=== PATIENT | male | born 1985 | race American Indian/Alaskan Native ===

== ENCOUNTER 2019-03-17 17:25 | Inpatient (IN) | payer SELFPAY ==
[~2019-03-17 17:25] MED LIST: CARDIZEM IV ONE
[2019-03-17] MEDS ORDERED: CORDARONE 150 MG in D5W 97 ML IV ONE (17:35)
[2019-03-17] MEDS ORDERED: CORDARONE 150 MG in D5W 100 ML IV ONE (17:35)
[2019-03-17] MEDS ORDERED: CORDARONE IV ONE (17:36)
[2019-03-17] MEDS ORDERED: NACL 0.9% 1000 ML 1,000 ML ONE (17:36)
[2019-03-17] MEDS ORDERED: CARDIZEM ONE (17:36)
[2019-03-17] MEDS ORDERED: NACL 0.9% 1000 ML 2,000 ML ONE (17:39)
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
[2019-03-17] MEDS ORDERED: VITAMIN B-1 100 MG, FOLVITE 1 MG, INFUVITE 10 ML in NACL 0.9% 1000 ML 1,000 ML IV ONE (17:46)
[2019-03-17] MEDS ORDERED: NACL 0.9% 1000 ML 2,000 ML IV ONE (17:52)
[2019-03-17 17:54] LABS: Basophils % (Auto) 0.7 % (0.0-1.8); Eosinophils # (Auto) 0.1 K/mm3 (0.0-0.4); Eosinophils % (Auto) 1.1 % (0.0-4.3); Hematocrit 41.2 % (35.5-45.6); Hemoglobin 14.2 gm/dl (11.8-15.2); Lymphocytes # (Auto) 2.7 K/mm3 (1.2-5.4); Lymphocytes % (Auto) 36.6 % (13.4-35.0); Mean Corpuscular HGB Conc 34 % (32-34); Mean Corpuscular Volume 93 fl (84-94); Monocytes # (Auto) 0.5 K/mm3 (0.0-0.8); Monocytes % (Auto) 6.2 % (0.0-7.3); Platelet Count 272 K/mm3 (140-440); Red Blood Count 4.42 M/mm3 (3.65-5.03); Red Cell Distribution Width 13.3 % (13.2-15.2)
[2019-03-17 18:14] LABS: BUN/Creatinine Ratio 11; Blood Urea Nitrogen 11 mg/dL (9-20); Calcium 8.5 mg/dL (8.4-10.2); Hemolysis Index 3
--- NOTE | 2019-03-17 18:36 | XRay Report ---
PROCEDURE: Chest. TECHNIQUE: Chest radiograph single view. HISTORY: Shortness of breath. COMPARISONS: None. FINDINGS: The heart and mediastinum appear normal. The lungs are clear and well expanded. There are no pleural effusions. The soft tissues and regional skeleton are unremarkable. IMPRESSION: Normal study. This document is electronically signed by Daniel Caldera MD., March 17 2019 06:34:34 PM ET
[2019-03-17] MEDS ORDERED: NACL 0.9% 1000 ML 1,000 ML IV ONE (19:16)
[2019-03-17] MEDS ORDERED: ZOFRAN IV PRN (21:13)
[2019-03-17] MEDS ORDERED: TYLENOL PO PRN (21:13)
[2019-03-17] MEDS ORDERED: SODIUM CHLORIDE FLUSH SYRINGE 10 ML IV PRN (21:13)
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
[2019-03-17 21:17] LABS: Bilirubin,Urine NEG (Negative); Blood,Urine NEG (Negative); Color,Urine Yellow (Yellow); Hyaline Casts,Urine 6 /LPF; Mucus,Urine 1+ /HPF; Urobilinogen,Urine < 2.0 mg/dL (<2.0)
[2019-03-17 21:18] LABS: Amphetamine Screen,Urine PRESUMPTIVE NEGATIVE; Benzodiazepines Screen,Urine PRESUMPTIVE NEGATIVE; Cannabinoid Screen,Urine PRESUMPTIVE NEGATIVE; Methadone Screen,Urine PRESUMPTIVE NEGATIVE; Opiate Screen,Urine PRESUMPTIVE NEGATIVE
[2019-03-17 21:32] LABS: Cocaine Screen,Urine PRESUMPTIVE POSITIVE
[2019-03-17] MEDS: SODIUM CHLORIDE FLUSH SYRINGE 10 ML IV SCH (21:39)
[2019-03-17] MEDS ORDERED: PEPCID PO SCH (22:00)
[2019-03-17] MEDS ORDERED: ATIVAN IV PRN (23:11)
[2019-03-18] MEDS: NACL 0.9% 1000 ML 1,000 ML IV SCH ×2 (00:37→12:25)
[2019-03-18] MEDS ORDERED: ALUM-MAG HYDROX-SIMETH 200-200-20MG/5ML PO PRN (00:54)
[2019-03-18] MEDS: REGLAN IV PRN ×2 (03:28→12:31)
[2019-03-18] MEDS ORDERED: PROTONIX IV SCH (04:00)
[2019-03-18] MEDS ORDERED: FOLVITE PO SCH (10:00)
[2019-03-18] MEDS ORDERED: THERAGRAN Tab PO SCH (10:00)
[2019-03-18] MEDS ORDERED: PROTONIX PO SCH (10:00)
[2019-03-18] MEDS ORDERED: VITAMIN B-1 PO SCH (10:00)
[2019-03-18] MEDS ORDERED: VITAMIN B-1 100 MG in NACL 0.9% 50 ML IV SCH (10:00)
[2019-03-18] MEDS: SODIUM CHLORIDE FLUSH SYRINGE 10 ML IV SCH (12:24)
[2019-03-18 12:44] VITALS: BP 121/83
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
[2019-03-18] MEDS ORDERED: K-DUR PO ONE (14:00)
--- NOTE | 2019-03-18 14:39 | Discharge Summary ---
Providers - Providers Date of Admission: 03/17/19 21:13 Date of discharge: 03/18/19 Attending physician: ALETHA COOPER 03/18/19 10:22 Consult to Physician [CONS] Routine Comment: Consulting Provider: JACKSON LAN Physician Instructions: Reason For Exam: SVT [facility] Condition: Critical Pertinent studies: CXR 2d echo Hospital course: The patient is a 33-year-old male with a past history of polysubstance use and ETOH use who presented with complaints of shortness of breath, palpitations and dizziness which began yesterday evening while he was walking to the grocery store. Patient reported that he was drinking alcohol all day with his friends and also admited to cocaine use. Per the chart, upon EMS arrival pt was noted to be tachycardic with SVT suspected and thus pt was given 6 mg of adenosine en route to ED. Patient was then given Cardizem 20 mg with no response and then amiodarone bolus of 150mg and his heart rate began to slow down. Unfortunately, no ECGs or strips from EMS found on the chart. Initial ECG in ED shows apparent sinus tachycardia with HR 150s. Patent remained in NSR with no acute events since admission to telemetry. Cardiology consulted, showed preserved EFon 2d echo. Repleted K and had normal serum Mg, normal thyroid profile, no sign of withdrawal. Patient was then discharged home in stable condition and counseled to be abstained from substance and alcohol abuse. Discharge diagnosis: (1) SVT (supraventricular tachycardia) Current Visit: Yes Status: suspected likely from cocaine abuse (2) Hypokalemia Current Visit: Yes Status: Acute (3) Alcohol use Current Visit: Yes Status: Chronic (4) Cocaine use Current Visit: Yes Status: Chronic (5) Tobacco use Current Visit: Yes Status: Chronic Disposition: DC-01 TO HOME OR SELFCARE Time spent for discharge: 34 minutes Core Measure Documentation - Palliative Care Palliative Care/ Comfort Measures: Not Applicable - Core Measures Any of the following diagnoses?: none Exam - Constitutional Vitals: Temp Pulse Resp BP Pulse Ox 98.1 F 96 H 18 121/83 99 03/18/19 08:41 03/18/19 10:37 03/18/19 08:41 03/18/19 08:41 06/28/19 08:14 General appearance: Present: no acute distress, well-nourished - EENT Eyes: Present: PERRL ENT: hearing intact, clear oral mucosa - Neck Neck: Present: supple, normal ROM - Respiratory Respiratory effort: normal Respiratory: bilateral: CTA - Cardiovascular Heart Sounds: Present: S1 & S2. Absent: rub, click - Extremities Extremities: pulses symmetrical, No edema Peripheral Pulses: within normal limits - Abdominal General gastrointestinal: Present: soft, non-tender, non-distended, normal bowel sounds - Integumentary Integumentary: Present: clear, warm, dry - Musculoskeletal Musculoskeletal: gait normal, strength equal bilaterally - Psychiatric Psychiatric: appropriate mood/affect, intact judgment & insight - Neurologic Neurologic: CNII-XII intact, moves all extremities Plan Activity: advance as tolerated Weight Bearing Status: Weight Bear as Tolerated Diet: low fat, low salt Follow up with: CHARLEE CANTU MD [Primary Care Provider] - 3-5 Days Prescriptions: Folic Acid [Folvite] 1 mg PO QDAY #30 tablet Pantoprazole [Protonix TAB] 40 mg PO QDAY #30 tablet Thiamine [Vitamin B-1] 100 mg PO QDAY #30 tablet
== END 2019-03-18 17:04 | disposition home or self-care (01) | DRG 918 ==
LOC: ED 17:25 → 4A 21:13
PROVIDERS: ADMIT Internal Medicine; ATTEND Internal Medicine
DX: T40.5X1A Poisoning by cocaine, accidental (unintentional), initial encounter (principal); I47.1 Supraventricular tachycardia; E87.6 Hypokalemia; F14.10 Cocaine abuse, uncomplicated; F17.200 Nicotine dependence, unspecified, uncomplicated; F10.129 Alcohol abuse with intoxication, unspecified; Y92.89 Other specified places as the place of occurrence of the external cause; Z71.6 Tobacco abuse counseling
CPT/HCPCS: 36415; 71045; 80048; 80307; 80320; 81001; 83735; 84439; 84443; 85025; 93005; 93010; 93306; 99406; G0378; C9113; G0480; J0282; J2060; J2405; J2765; J3411; J7030